=== PATIENT | female | born 1985 | race Caucasian/White ===

== ENCOUNTER 2019-01-17 10:27 | Emergency (ER) | payer SELFPAY ==
[~2019-01-17] VITALS: Ht 160 cm; Wt 72.6 kg
[2019-01-17] MEDS ORDERED: NORCO 5-325 TA1 EACH PO (12:30)
[2019-01-17] MEDS ORDERED: IBU800 MG PO (12:30)
== END 2019-01-17 12:31 | disposition home or self-care (01) ==
LOC: ED 10:27
DX: S52.022A Displaced fracture of olecranon process without intraarticular extension of left ulna, initial encounter for closed fracture (principal); S52.102A Unspecified fracture of upper end of left radius, initial encounter for closed fracture; Z88.0 Allergy status to penicillin; Z88.2 Allergy status to sulfonamides; W19.XXXA Unspecified fall, initial encounter; X50.9XXA Other and unspecified overexertion or strenuous movements or postures, initial encounter; Y93.01 Activity, walking, marching and hiking; Y92.828 Other wilderness area as the place of occurrence of the external cause; Y99.8 Other external cause status